=== PATIENT | male | born 1985 | race Caucasian/White ===

== ENCOUNTER 2024-04-18 14:26 | Emergency (ER) | payer SELFPAY ==
[2024-04-18 14:32] VITALS: BP 133/84; PULSE 78; RESP 18; TEMP 36.7; O2SAT 97; BMI 25.9
--- NOTE | 2024-04-18 14:45 | W.ED.UPPEXIN ---
HPI - Extremity Injury (Upper) General: Chief Complaint: Extremity Problem,Nontraumatic Stated Complaint: Right arm injury Time Seen by Provider: 04/18/24 14:31 Source: patient Mode of arrival: ambulatory Limitations: no limitations History of Present Illness: Patient is a 38-year-old male presents to ED today with complaint of right elbow pain. Patient states he has had pain in the elbow for quite some time mainly noticing with lifting. He states at one point he had an MRI scheduled for the elbow but lost his insurance so this never was completed. He states yesterday he was lifting approximately 75 pounds and heard a pop in his right elbow and has had pain since. Patient states he woke up this morning with continued pain and noted swelling around the elbow. MD complaint: injury to: right and elbow Onset (ago): day(s) (yesterday/injury; has had pain in elbow prior to that for months) Other Extremity Injury: Right: elbow Other injuries: none Place: home Severity: moderate Relieving factors: immobilization Exacerbating factors: movement of extremity Associated symptoms: Denies neck pain Related Data Allergies Allergy/AdvReac Type Severity Reaction Status Date / Time ketorolac [From Toradol] Allergy Unknown Unknown Verified 04/18/24 14:35 cefepime Allergy Unknown Verified 04/18/24 14:36 Penicillins Allergy Unknown Verified 04/18/24 14:37 tramadol Allergy Unknown Verified 04/18/24 14:34 Review of Systems Musc: Reports: joint pain and joint swelling; Denies: neck pain, back pain, extremity pain, extremity swelling, joint redness or joint warmth Neuro: Denies: numbness in extremities or sensory changes Physical Exam Const: COMMON NORMALS: no acute distress, average body habitus, patient oriented x3, no limitations, healthy appearing, alert and well nourished Extremity: COMMON NORMALS: capillary refill normal GENERAL: Yes normal exam except as noted RIGHT UPPER EXTREMITY: Yes elbow joint (pain throughout elbow joint; most pain seems to be around lat epicondyle) Right elbow: Yes ROM (pain with full extension/flexion; has normal micromovements), Yes neurovascular exam (normal) and Yes other (mild swelling) Neuro: COMMON NORMALS: patient oriented x3, moves all extremities, no focal motor deficits and no sensory deficits noted SENSORIUM/ORIENTATION: Yes alert Course Vital Signs: Vital signs: Vital Signs Temperature 98.0 F 04/18/24 14:32 Pulse Rate 78 04/18/24 14:49 Respiratory Rate 18 04/18/24 14:49 Blood Pressure 119/72 04/18/24 14:49 Pulse Oximetry 98 04/18/24 14:49 Oxygen Delivery Me thod Room Air 04/18/24 14:49 MDM - Extremity Injury (Upper) Medical Decision Making XR unremarkable. Suspect tendon/ligamentous injury given his history. He has a sling but states this is uncomfortable to his neck and shoulder. He is requesting fiberglass splint that he can take off and aware as needed. Recommend follow-up with his primary care provider. They can continue plan for MRI imaging or physical therapy as indicated. XR interpretation done by ED provider, pending radiology final review ED provider radiology interpretation(s): XR interpretation done by ED provider, pending radiology final review ED provider radiology interpretation(s): No acute fractures/pathology appreciated Discharge Plan Discharge Patient Disposition: Home Clinical Impression: Injury of right elbow Qualifiers: Encounter type: initial encounter Qualified Code(s): S59.901A - Unspecified injury of right elbow, initial encounter Condition: Stable Discharge Orders: Discharge ED (Routine); Ordered 04/18/24 Ordered By: Kitty Hatch Activity Restrictions/Additional Instructions: As we discussed, I would like you to follow-up with your primary care provider soon as possible for further evaluation of your elbow injury. Coding Level of Care Code ED Infrastructure Director for [facility] Roberts
[2024-04-18 14:49] VITALS: BP 119/72; PULSE 78; RESP 18; O2SAT 98
--- NOTE | 2024-04-18 14:52 | XRR_ITS ---
PROCEDURE INFORMATION: Exam: XR Right Elbow Exam date and time: 04/18/2024 3:04 PM Age: 38 years old Clinical indication: Patient HX: Reports lifting a 75lb tote last night and felt a pop in right elbow. This am woke up with pain and swelling. Can extend but does cause pain. ; Additional info: Pain/swelling TECHNIQUE: Imaging protocol: Radiologic exam of the right elbow. Views: 3 or more views. COMPARISON: No relevant prior studies available. FINDINGS: Bones/joints: Normal. Soft tissues: Normal. XR/XR elbow RT min 3V* [id number] IMPRESSION: No acute findings.
[2024-04-18 15:47] VITALS: BP 120/82; PULSE 80; O2SAT 98
== END 2024-04-18 15:50 | disposition home or self-care (01) ==
PROVIDERS: Emergency Provider Physician Assistant
DX: S59.901A Unspecified injury of right elbow, initial encounter (principal); X50.0XXA Overexertion from strenuous movement or load, initial encounter
CPT/HCPCS: 73080; 99283